=== PATIENT | male | born 1990 | race Caucasian/White ===

== ENCOUNTER 2019-12-27 04:21 | Emergency (ER) | payer MEDICAID ==
[~2019-12-27] VITALS: Ht 182.9 cm; Wt 95.3 kg
[2019-12-27] MEDS ORDERED: KETOROLAC TROMETHAMINE 60 MG/2 ML VIAL IM ONE (04:45)
[2019-12-27] MEDS ORDERED: TYLENOL WITH C1 EACH PO (05:43)
[2019-12-27] MEDS ORDERED: INDOMETHACIN50 MG PO (05:43)
--- NOTE | 2019-12-27 05:50 | Diagnostic Imaging Report ---
Exam: Right foot 3 views History: Pain at base of great toe Comparison: None. Findings: There is an oblique linear lucency traversing the medial aspect of the base of the first proximal phalanx seen only on the frontal radiograph. Bones are otherwise intact. Joint spaces well-maintained. Mild soft tissue swelling of the forefoot. Impression: Linear lucency at the base of the first metatarsal likely represents a vascular channel, though a nondisplaced fracture may have a similar appearance. Correlate for point tenderness. Signed by: Dr. Raul Kim M.D. on 12/27/2019 5:48 AM
[2019-12-27 06:04] VITALS: BP 121/63
== END 2019-12-27 06:00 | disposition home or self-care (01) ==
LOC: FSED 04:21
DX: M79.671 Pain in right foot (principal); F17.290 Nicotine dependence, other tobacco product, uncomplicated
CPT/HCPCS: 73630; 99283; J1885